=== PATIENT | female | born 1960 | race Caucasian/White ===

== ENCOUNTER 2017-05-27 06:37 | Day surgery (SDC) | payer OTHER ==
[2017-05-27] VITALS (15 sets, daily range): BP systolic 81–135; BP diastolic 48–74; PULSE 50–96; RESP 6–21; Ht 152.4 cm; Wt 57.0 kg
[~2017-05-27] VITALS: Ht 152.4 cm; Wt 57.0 kg
[2017-05-27] MEDS ORDERED: LEVO50TA83 PO (07:20)
--- NOTE | 2017-05-27 07:43 | HPN ---
Date/Time of Note Date/Time of Note DATE: 05/27/17 TIME: 07:40 Interval H&P Admission Note Pt. seen H&P reviewed: No system changes ANAID THURMAN DPM May 27, 2017 07:42
[2017-05-27] MEDS ORDERED: BUPIVACAINE 0.5% (SDV) 30 ML INJ ONE (07:57)
[2017-05-27] MEDS ORDERED: LIDOCAINE 1% (STERILE-PAK) 30 ML INJ ONE (07:57)
[2017-05-27] MEDS ORDERED: POVIDONE IODINE 10% 28.4 GM OINT ONE (07:57)
[2017-05-27] MEDS ORDERED: LIDOCAINE 2% (SDV) 5 ML INJ ONE (08:44)
[2017-05-27] MEDS ORDERED: FENTAnyl 50 MCG/ML VIAL ONE (08:44)
[2017-05-27] MEDS ORDERED: CEFAZOLIN 1 GM INJ ONE (08:44)
[2017-05-27] MEDS ORDERED: MIDAZOLAM 1 MG/ML 2 ML INJ ONE (08:44)
[2017-05-27] MEDS ORDERED: ONDANSETRON 4 MG INJ ONE (08:44)
[2017-05-27] MEDS ORDERED: PROPOFOL 20 ML ONE (08:44)
[2017-05-27] MEDS ORDERED: METOCLOPRAMIDE 10 MG INJ ONE (08:44)
[2017-05-27] MEDS ORDERED: KETOROLAC 30 MG INJ ONE (08:45)
[2017-05-27] MEDS ORDERED: DEXAMETHASONE 4 MG/ML 1 ML INJ ONE (08:45)
[2017-05-27] MEDS ORDERED: MEPERIDINE 25 MG INJ IV PRN (09:00)
[2017-05-27] MEDS ORDERED: DIPHENHYDRAMINE 50 MG INJ IV PRN (09:00)
[2017-05-27] MEDS ORDERED: ONDANSETRON 4 MG INJ IV PRN (09:00)
[2017-05-27] MEDS ORDERED: OXYCODONE/ACETAMINOPHEN (5/325) TAB PO PRN ×2 (09:00)
[2017-05-27] MEDS ORDERED: HYDROmorphONE (0.2 MG/ML) 10ML SYG IV PRN ×2 (09:00)
[2017-05-27] MEDS ORDERED: FENTAnyl 50 MCG/ML VIAL IV PRN (09:00)
[2017-05-27] MEDS ORDERED: PROCHLORPERAZINE 10 MG INJ IV PRN (09:00)
--- NOTE | 2017-05-27 09:24 | SIPON ---
Date/Time of Note Date/Time of Note DATE: 05/27/17 TIME: 09:21 Operative Report Preoperative Diagnosis Preop diagnosis :hallux abductal valgus right foot and hammertoe second right foot Postoperative Diagnosis Postop diagnosis same Operation/Procedure Performed Osteotomy and bunionectomy with fixation first metatarsal and hammertoe correction second all right foot Surgeon: ANAID THURMAN DPM Anesthesia Type: general Estimated Blood Loss: minimal Transfusion Required: no Specimens Bone Grafts/Implants Screw fixation right first metatarsal Complications: no ANAID THURMAN DPM May 27, 2017 09:23
--- NOTE | 2017-05-27 13:42 | PREOPHP ---
DATE OF ADMISSION: 05/27/2017 REASON FOR ADMISSION: The patient is being admitted to the hospital on 05/27 for elective foot surgery. Palliative treatment, unsuccessful. Patient has been explained surgery, complications, alternatives, and elected to have elective foot surgery. The patient is having pain in the bunion, right foot and the 2nd toe, right foot. ALLERGIES: PATIENT DENIES TO ANY MEDICINE. MEDICATIONS: Taking medicine for her thyroid only. REVIEW OF SYSTEMS: Denies heart, lung, liver, kidney problem. Denies diabetes. SOCIAL HISTORY: Denies smoking or alcohol. PHYSICAL EXAMINATION: EXTREMITIES: I do not see any other pertinent upper extremity physical exam by [facility]. Lower extremity shows a DP and PT equal and regular. NEUROLOGICAL: Negative for pathology. DERMATOLOGIC: Negative for pathology. MUSCULOSKELETAL: Shows hallux abductovalgus with bunion, right foot, and hammer toe, 2nd, right foot. FINAL DIAGNOSES: 1. Hallux abductovalgus with bunion, right foot. 2. Hammer toe, 2nd, right foot. Dictated By: Chalo Castelan DPM /troy/traci /Document#: [id number]
--- NOTE | 2017-05-27 14:00 | OPR ---
DATE OF OPERATION: 05/27/2017 PREOPERATIVE DIAGNOSES: 1. Hallux abductovalgus with bunion, right foot. 2. Hammertoe, 2nd right foot. POSTOPERATIVE DIAGNOSIS: 1. Hallux abductovalgus with bunion, right foot. 2. Hammertoe, 2nd right foot. OPERATION PERFORMED: An osteotomy and bunionectomy with fixation, 1st metatarsal, right foot. Hammertoe correction, 2nd toe, right foot. The Vito osteotomy that was originally planned was unnecessary to do because the osteotomy on the 1st metatarsal corrected the problem. EpiFix was applied. SURGEON: Melida Castelan DPM. ANESTHESIA: The patient was under general anesthesia. OPERATIVE PROCEDURE: Patient was brought to the surgical suite, placed in the supine position, general anesthesia the patient had sterile prep and drape. Pneumatic cuff in mid thigh. Findings consistent with the pre and postop diagnosis. The 1st incision was a dorsal medial longitudinal incision over the 1st metatarsophalangeal joint. Using sharp and blunt dissection, the incision was carried deep. The Bovie was used as necessary and the capsule was entered with a longitudinal capsulotomy and the head of the 1st metatarsal was freed of its attachment dorsally and medially. Using a power saw, the medial eminence was resected. Then a horizontal V-osteotomy was made with the apex distal and the base proximal. The cuts were approximately 60 degrees to each other and the capital fragment was moved laterally, impacted on the shaft and the medial part of the overhang on the 1st metatarsal was resected. A K-wire was placed across the osteotomy site and measured and a 14 mm 2.5, Newman screw was placed over the K-wire and screwed into place. The K- wire was removed and the osteotomy site was held. The medial eminence was then rasped smooth and it was noted that the preoperative condition had been relieved. So it was not necessary to do the Vito osteotomy with fixation and the area was then cleansed and EpiFix was applied and the area was coaptated using 3-0 Vicryl and the skin was coaptated using 5-0 nylon. The area was injected with 0.5 percent Marcaine. Attention was then turned to the 2nd digit where a hammertoe procedure was performed on the 2nd with a longitudinal incision. The head of the proximal phalanx freed of its attachment and resected at its surgical neck. The area was cleansed and the subcutaneous tissue coaptated using 3-0 Vicryl. The skin was coaptated using 5-0 nylon. This area was also injected with 0.5 percent Marcaine to prolong anesthesia, as was the first incision and then both incisions were dressed using half-inch Steri-Strips, Betadine ointment, 4 x 4s impregnated with Betadine solution and Stuart with an outer layer of Coban made into a semi-compressive dressing. The patient tolerated surgery well and was returned to recovery room in satisfactory condition. Dictated By: Chalo Castelan DPM /troy/traci /Document#: [id number]
== END 2017-05-27 11:59 | disposition home or self-care (01) ==
LOC: SDS 06:37
PROVIDERS: ATTEND Podiatrist
DX: M20.11 Hallux valgus (acquired), right foot (principal); M20.41 Other hammer toe(s) (acquired), right foot; M21.611 Bunion of right foot; E03.9 Hypothyroidism, unspecified
CPT/HCPCS: 28285; 28296; 88304; 88311; J0690; J1100; J1170; J1885; J2175; J2250; J2405; J2765; J3010; Z7512; Z7610